=== PATIENT | female | born 1960 | race Caucasian/White ===

== ENCOUNTER 2022-04-05 09:47 | Outpatient (CLI) | payer OTHER, SELFPAY ==
[2022-04-05 14:13] LABS: Cholesterol* 250 mg/dL (90-199); HDL Cholesterol* 67 mg/dL (>=50); LDL Cholesterol Calculated 170 mg/dL (<100); Triglycerides* 66 mg/dL (40-149)
== END 2022-04-05 09:48 | disposition home or self-care (01) ==
PROVIDERS: PCP Family Medicine; Visit Provider Family Medicine
DX: Z00.00 Encounter for general adult medical examination without abnormal findings (principal); E03.9 Hypothyroidism, unspecified; Z13.6 Encounter for screening for cardiovascular disorders
CPT/HCPCS: 80061; 84443

== ENCOUNTER 2022-11-02 10:36 | Outpatient (CLI) | payer OTHER, SELFPAY | END 2022-11-02 10:37 | disposition home or self-care (01) | LOC: NFLDREF 11-10 12:13 | PROVIDERS: PCP Family Medicine; Referring Provider Family Medicine; Visit Provider Family Medicine | DX: E03.9 Hypothyroidism, unspecified (principal) | CPT/HCPCS: 84443 ==

== ENCOUNTER 2023-05-12 09:08 | Outpatient (CLI) | payer OTHER, SELFPAY | END 2023-05-12 09:09 | disposition home or self-care (01) | PROVIDERS: PCP Family Medicine; Visit Provider Family Medicine | DX: Z00.00 Encounter for general adult medical examination without abnormal findings (principal); R53.83 Other fatigue; E07.89 Other specified disorders of thyroid; E78.00 Pure hypercholesterolemia, unspecified; E03.9 Hypothyroidism, unspecified; E53.8 Deficiency of other specified B group vitamins; D51.0 Vitamin B12 deficiency anemia due to intrinsic factor deficiency | CPT/HCPCS: 80053; 80061; 82607; 82671; 83001; 83002; 84144; 84439; 84443 ==

== ENCOUNTER 2023-08-31 10:45 | Outpatient (CLI) | payer OTHER, SELFPAY ==
--- NOTE | 2023-08-31 10:45 | CRLHL7_ITS ---
For Patients: As a result of the Century Cures Act, medical imaging exams and procedure reports are released immediately into your electronic medical record. You may view this report before your referring provider. If you have questions, please contact your health care provider. INDICATION: DISORDER OF THYROID, Yao`s COMPARISON: none TECHNIQUE: Lance scale and color Doppler images were acquired of the thyroid gland. FINDINGS: The thyroid gland is diminutive and heterogeneous in echotexture. The right lobe measures 2.7 x 0.8 x 0.9 cm and the left lobe measures 3.0 x 0.6 x 1.1 cm in size. There are no suspicious masses or nodules. The color Doppler images demonstrate decreased vascularity. There is no evidence of cervical lymphadenopathy or parathyroid mass. IMPRESSION: Diminutive, heterogeneous and hypovascular thyroid. Dictated by Cuauhtemoc Thurman MD @ 08/31/2023 11:44:14 AM (Electronically Signed)
== END 2023-08-31 10:46 | disposition home or self-care (01) ==
PROVIDERS: PCP Family Medicine; Visit Provider Family Medicine
DX: E06.3 Autoimmune thyroiditis (principal)
CPT/HCPCS: 76536

== ENCOUNTER 2023-11-20 08:55 | Outpatient (CLI) | payer OTHER, SELFPAY | END 2023-11-20 08:56 | disposition home or self-care (01) | LOC: NFLDREF 11-27 09:53 | PROVIDERS: PCP Family Medicine; Referring Provider Family Medicine; Visit Provider Family Medicine | DX: E03.9 Hypothyroidism, unspecified (principal); E78.00 Pure hypercholesterolemia, unspecified | CPT/HCPCS: 80061; 80076; 84439; 84443 ==

== ENCOUNTER 2025-03-13 09:13 | Outpatient (CLI) | payer BC, SELFPAY | END 2025-03-13 09:14 | disposition home or self-care (01) | PROVIDERS: PCP Family Medicine; Visit Provider Family Medicine | DX: E78.00 Pure hypercholesterolemia, unspecified (principal); E53.8 Deficiency of other specified B group vitamins; E03.9 Hypothyroidism, unspecified; R53.83 Other fatigue; R53.81 Other malaise | CPT/HCPCS: 80053; 80061; 82306; 82607; 82671; 83001; 83002; 84144; 84403; 84439; 84443; 84481 ==